=== PATIENT | male | born 1985 | race Caucasian/White ===

== ENCOUNTER 2017-02-20 20:26 | Emergency (ER) | payer OTHER ==
[2017-02-20] MEDS ORDERED: SODIUM CHLORIDE 0.9% 1,000 ML IV ONE (21:19)
[2017-02-20] MEDS ORDERED: ONDANSETRON 4 MG/2 ML VIAL IVP STA (21:46)
--- NOTE | 2017-02-20 21:49 | ED ---
General Adult HPI - General Chief complaint: Abdominal Pain Stated complaint: Abd Pain/Vomiting Time Seen by Provider: 02/20/17 21:15 Source: patient, RN notes reviewed Mode of arrival: ambulatory Limitations: no limitations - History of Present Illness Initial comments: Patient is a 31-year-old male presents to the emergency room for evaluation of nausea, vomiting and diarrhea. Patient states he can with diarrhea yesterday throughout the day. Patient states he woke up this morning with nausea, vomiting and diarrhea again. Patient states he vomited about 4-5 times and had 4 episodes of diarrhea today. Patient denies blood in stools. Patient denies trying new foods. Patient denies recent travel outside the country. Patient denies taking recent antibiotics. Patient states he is having diffuse left lower quadrant pain. Patient denies fevers or chills. Patient denies history of abdominal surgeries. Patient denies any pain or burning while urinating. Patient denies chest pain shortness of breath. Patient denies headache or dizziness. - Related Data Home Medications Medication Instructions Recorded Confirmed Citalopram Hydrobromide [CeleXA] 20 mg PO DAILY 02/20/17 02/20/17 Enalapril [Vasotec] 5 mg PO DAILY 02/20/17 02/20/17 Levothyroxine Sodium [Synthroid] 100 mcg PO DAILY 02/20/17 02/20/17 Omeprazole 20 mg PO BID 02/20/17 02/20/17 carBAMazepine [TEGretol] 200 mg PO Q12H 02/20/17 02/20/17 traZODone HCL 150 mg PO HS 02/20/17 02/20/17 Previous Rx's Medication Instructions Recorded Ondansetron Odt [Zofran Odt] 4 mg PO Q8HR PRN #12 tab 02/20/17 Allergies Allergy/AdvReac Type Severity Reaction Status Date / Time No Known Allergies Allergy Verified 02/20/17 21:33 Review of Systems ROS Statement: Those systems with pertinent positive or pertinent negative responses have been documented in the HPI. ROS Other: All systems not noted in ROS Statement are negative. Past Medical History Past Medical History: No Reported History History of Any Multi-Drug Resistant Organisms: None Reported Additional Past Surgical History / Comment(s): vasectomy Past Psychological History: No Psychological Hx Reported Smoking Status: Never smoker Past Alcohol Use History: None Reported Past Drug Use History: None Reported General Exam - General Exam Comments Initial Comments: Sitting in exam room, no acute distress. Limitations: no limitations General appearance: alert, in no apparent distress Head exam: Present: atraumatic, normocephalic, normal inspection Eye exam: Present: normal appearance ENT exam: Present: normal exam Neck exam: Present: normal inspection Respiratory exam: Present: normal lung sounds bilaterally. Absent: respiratory distress Cardiovascular Exam: Present: regular rate, normal rhythm, normal heart sounds GI/Abdominal exam: Present: soft, normal bowel sounds. Absent: distended, tenderness, guarding, rebound, rigid Extremities exam: Present: normal inspection Back exam: Present: normal inspection Neurological exam: Present: alert, oriented X3, CN II-XII intact, normal gait Psychiatric exam: Present: normal affect, normal mood Skin exam: Present: warm, dry, intact, normal color. Absent: rash Course Vital Signs 02/20/17 02/20/17 21:08 23:22 Temperature 97.6 F 98.4 F Pulse Rate 67 70 Respiratory 16 18 Rate Blood Pressure 133/96 140/89 O2 Sat by Pulse 98 96 Oximetry Medical Decision Making - Medical Decision Making Patient is a 30-year-old male presents to the emergency room for evaluation nausea, vomiting and diarrhea. Labs show no concerning findings. Patient states feeling better after fluids and Zofran. Will send patient home with Zofran and advised him to follow-up with his primary care provider if symptoms are not improving. Patient states he understands everything that was discussed with him. Return parameters discussed. Case discussed with Dr. Sparks. - Lab Data Result diagrams: 02/20/17 21:38 02/20/17 21:38 Lab Results 02/20/17 02/20/17 02/20/17 Range/Units 21:38 21:38 21:38 WBC 8.5 (3.8-10.6) k/uL RBC 5.92 H (4.30-5.90) m/uL Hgb 18.0 H (13.0-17.5) gm/dL Hct 51.1 (39.0-53.0) % MCV 86.4 (80.0-100.0) fL MCH 30.4 (25.0-35.0) pg MCHC 35.2 (31.0-37.0) g/dL RDW 12.7 (11.5-15.5) % Plt Count 321 (150-450) k/uL Neutrophils % 78 % Lymphocytes % 15 % Monocytes % 5 % Eosinophils % 1 % Basophils % 1 % Neutrophils # 6.6 (1.3-7.7) k/uL Lymphocytes # 1.3 (1.0-4.8) k/uL Monocytes # 0.4 (0-1.0) k/uL Eosinophils # 0.0 (0-0.7) k/uL Basophils # 0.1 (0-0.2) k/uL Sodium 141 (137-145) mmol/L Potassium 4.7 (3.5-5.1) mmol/L Chloride 106 (98-107) mmol/L Carbon Dioxide 23 (22-30) mmol/L Anion Gap 12 mmol/L BUN 15 (9-20) mg/dL Creatinine 0.98 (0.66-1.25) mg/dL Est GFR (MDRD) Af Amer >60 (>60 ml/min/1.73 sqM) Est GFR (MDRD) Non-Af >60 (>60 ml/min/1.73 sqM) Glucose 101 H (74-99) mg/dL Calcium 10.5 H (8.4-10.2) mg/dL Magnesium 1.7 (1.6-2.3) mg/dL Total Bilirubin 0.7 (0.2-1.3) mg/dL AST 33 (17-59) U/L ALT 57 (21-72) U/L Alkaline Phosphatase 100 (38-126) U/L Total Protein 8.5 H (6.3-8.2) g/dL Albumin 5.0 (3.5-5.0) g/dL Amylase 60 (30-110) U/L Lipase 114 (23-300) U/L - Radiology Data Radiology results: report reviewed, image reviewed Disposition Clinical Impression: Nausea vomiting and diarrhea Disposition: HOME SELF-CARE Condition: Good Instructions: Gastroenteritis (ED) Additional Instructions: Take Zofran as needed for nausea. Drink plenty of fluids. Please follow up with primary care provider in 1-2 days. If any new symptom arises or symptoms worsen, return to ER as soon as possible. Prescriptions: Ondansetron Odt [Zofran Odt] 4 mg PO Q8HR PRN #12 tab PRN Reason: Nausea Referrals: Thiago Goldberg MD [Primary Care Provider] - 1-2 days Time of Disposition: 23:06
[2017-02-20 21:53] LABS: Basophils # (A) 0.1 k/uL (0-0.2); Basophils % (A) 1 %; CH 31.1; CHCM 36.1; Eosinophils % (A) 1 %; HCT 51.1 % (39.0-53.0); HDW 2.88; Luc # (Auto) 0.11; Luc % (Auto) 1; Lymphocytes # (A) 1.3 k/uL (1.0-4.8); Lymphocytes % (A) 15 %; MCH 30.4 pg (25.0-35.0); MCHC 35.2 g/dL (31.0-37.0); MCV 86.4 fL (80.0-100.0); Mean Platelet Volume 6.5; Monocytes # (A) 0.4 k/uL (0-1.0); Monocytes % (A) 5 %; Neutrophils # (A) 6.6 k/uL (1.3-7.7); Neutrophils % (A) 78 %; RBC 5.92 m/uL (4.30-5.90); RDW 12.7 % (11.5-15.5); WBC 8.5 k/uL (3.8-10.6); WBC (Perox) 8.52
[2017-02-20 22:05] LABS: ALT 57 U/L (21-72); AST 33 U/L (17-59); Alkaline Phosphatase 100 U/L (38-126); Amylase 60 U/L (30-110); Anion Gap 12 mmol/L; Blood Urea Nitrogen 15 mg/dL (9-20); Calcium 10.5 mg/dL (8.4-10.2); Carbon Dioxide 23 mmol/L (22-30); Chloride 106 mmol/L (98-107); Glucose 101 mg/dL (74-99); Non-African American GFR(MDRD) >60 (>60 ml/min/1.73 sqM); Potassium 4.7 mmol/L (3.5-5.1); Sodium 141 mmol/L (137-145); Total Bilirubin 0.7 mg/dL (0.2-1.3); Total Protein 8.5 g/dL (6.3-8.2)
[2017-02-20 23:25] VITALS: BP 140/89; PULSE 70; RESP 18; TEMP 98.4
== END 2017-02-20 23:22 | disposition home or self-care (01) ==
LOC: EC 20:26
DX: R11.2 Nausea with vomiting, unspecified (principal); R19.7 Diarrhea, unspecified; R10.32 Left lower quadrant pain; Z79.899 Other long term (current) drug therapy
CPT/HCPCS: 99284; 96374; 96361 ×2; 36415; 80053; 82150; 83690; 83735; 85025; J2405

== ENCOUNTER 2017-02-22 17:14 | Emergency (ER) | payer OTHER ==
[2017-02-22 17:28] VITALS: RESP 18; TEMP 98
[2017-02-22] MEDS ORDERED: SODIUM CHLORIDE 0.9% 500 ML IV STA (18:16)
[2017-02-22 18:50] LABS: Basophils % (A) 1 %; CH 30.2; CHCM 34.5; Eosinophils # (A) 0.1 k/uL (0-0.7); Eosinophils % (A) 2 %; HCT 45.5 % (39.0-53.0); HDW 2.73; HGB 15.6 gm/dL (13.0-17.5); Luc % (Auto) 2; Lymphocytes # (A) 1.2 k/uL (1.0-4.8); Lymphocytes % (A) 20 %; MCHC 34.2 g/dL (31.0-37.0); MCV 87.9 fL (80.0-100.0); Mean Platelet Volume 6.3; Monocytes # (A) 0.3 k/uL (0-1.0); Monocytes % (A) 4 %; Neutrophils # (A) 4.5 k/uL (1.3-7.7); Neutrophils % (A) 72 %; RBC 5.18 m/uL (4.30-5.90); RDW 12.6 % (11.5-15.5); WBC 6.2 k/uL (3.8-10.6); WBC (Perox) 5.92
[2017-02-22 19:02] LABS: ALT 63 U/L (21-72); AST 39 U/L (17-59); Alkaline Phosphatase 88 U/L (38-126); Amylase 56 U/L (30-110); Anion Gap 13 mmol/L; Blood Urea Nitrogen 14 mg/dL (9-20); Calcium 9.8 mg/dL (8.4-10.2); Carbon Dioxide 21 mmol/L (22-30); Chloride 106 mmol/L (98-107); Glucose 102 mg/dL (74-99); Non-African American GFR(MDRD) >60 (>60 ml/min/1.73 sqM); Potassium 4.7 mmol/L (3.5-5.1); Sodium 140 mmol/L (137-145); Total Bilirubin 0.6 mg/dL (0.2-1.3); Total Protein 7.9 g/dL (6.3-8.2)
[2017-02-22 19:09] LABS: Appearance,Urine Clear (Clear); Bilirubin,Urine Negative (Negative); Glucose,Urine (UA) Negative (Negative); Ketones,Urine Negative (Negative); Leukocyte Esterase,Urine Negative (Negative); Nitrite,Urine Negative (Negative); PH, Urine 5.5 (5.0-8.0); Protein,Urine Negative (Negative); Specific Gravity,Urine 1.016 (1.001-1.035); UA Billing (MACRO vs. MICRO) CHEM; Urobilinogen,Urine <2.0 mg/dL (<2.0)
[2017-02-22 19:33] VITALS: BP 114/58; PULSE 75
--- NOTE | 2017-02-22 19:51 | ED ---
Nausea/Vomiting/Diarrhea HPI - General Chief complaint: Abdominal Pain Stated complaint: abd pain Time Seen by Provider: 02/22/17 18:10 Source: patient Mode of arrival: ambulatory Limitations: no limitations - Related Data Home Medications Medication Instructions Recorded Confirmed Citalopram Hydrobromide [CeleXA] 20 mg PO DAILY 02/20/17 02/22/17 Enalapril [Vasotec] 5 mg PO DAILY 02/20/17 02/22/17 Levothyroxine Sodium [Synthroid] 100 mcg PO DAILY 02/20/17 02/22/17 Omeprazole 20 mg PO BID 02/20/17 02/22/17 carBAMazepine [TEGretol] 200 mg PO Q12H 02/20/17 02/22/17 traZODone HCL 150 mg PO HS 02/20/17 02/22/17 Ibuprofen [Motrin] 400 mg PO Q6HR PRN 02/22/17 02/22/17 Previous Rx's Medication Instructions Recorded Ondansetron Odt [Zofran Odt] 4 mg PO Q8HR PRN #12 tab 02/20/17 Ondansetron Odt [Zofran ODT] 4 mg PO Q8HR PRN #10 tab 02/22/17 Allergies Allergy/AdvReac Type Severity Reaction Status Date / Time No Known Allergies Allergy Verified 02/22/17 19:07 Review of Systems ROS Statement: Those systems with pertinent positive or pertinent negative responses have been documented in the HPI. ROS Other: All systems not noted in ROS Statement are negative. Past Medical History Past Medical History: No Reported History History of Any Multi-Drug Resistant Organisms: None Reported Past Surgical History: Orthopedic Surgery Additional Past Surgical History / Comment(s): vasectomy knee Past Psychological History: Bipolar, Depression Smoking Status: Never smoker Past Alcohol Use History: None Reported Past Drug Use History: None Reported General Exam Limitations: no limitations Course Vital Signs 02/22/17 02/22/17 17:25 19:24 Temperature 98.0 F Pulse Rate 68 75 Respiratory 18 18 Rate Blood Pressure 132/81 114/58 O2 Sat by Pulse 97 98 Oximetry Medical Decision Making - Lab Data Result diagrams: 02/22/17 18:30 02/22/17 18:30 Lab Results 02/22/17 02/22/17 02/22/17 Range/Units 18:30 18:30 19:00 WBC 6.2 (3.8-10.6) k/uL RBC 5.18 (4.30-5.90) m/uL Hgb 15.6 (13.0-17.5) gm/dL Hct 45.5 (39.0-53.0) % MCV 87.9 (80.0-100.0) fL MCH 30.0 (25.0-35.0) pg MCHC 34.2 (31.0-37.0) g/dL RDW 12.6 (11.5-15.5) % Plt Count 244 (150-450) k/uL Neutrophils % 72 % Lymphocytes % 20 % Monocytes % 4 % Eosinophils % 2 % Basophils % 1 % Neutrophils # 4.5 (1.3-7.7) k/uL Lymphocytes # 1.2 (1.0-4.8) k/uL Monocytes # 0.3 (0-1.0) k/uL Eosinophils # 0.1 (0-0.7) k/uL Basophils # 0.0 (0-0.2) k/uL Sodium 140 (137-145) mmol/L Potassium 4.7 (3.5-5.1) mmol/L Chloride 106 (98-107) mmol/L Carbon Dioxide 21 L (22-30) mmol/L Anion Gap 13 mmol/L BUN 14 (9-20) mg/dL Creatinine 0.97 (0.66-1.25) mg/dL Est GFR (MDRD) Af Amer >60 (>60 ml/min/1.73 sqM) Est GFR (MDRD) Non-Af >60 (>60 ml/min/1.73 sqM) Glucose 102 H (74-99) mg/dL Calcium 9.8 (8.4-10.2) mg/dL Total Bilirubin 0.6 (0.2-1.3) mg/dL AST 39 (17-59) U/L ALT 63 (21-72) U/L Alkaline Phosphatase 88 (38-126) U/L Total Protein 7.9 (6.3-8.2) g/dL Albumin 4.7 (3.5-5.0) g/dL Amylase 56 (30-110) U/L Lipase 113 (23-300) U/L Urine Color Yellow Urine Appearance Clear (Clear) Urine pH 5.5 (5.0-8.0) Ur Specific [place] 1.016 (1.001-1.035) Urine Protein Negative (Negative) Urine Glucose (UA) Negative (Negative) Urine Ketones Negative (Negative) Urine Blood Negative (Negative) Urine Nitrite Negative (Negative) Urine Bilirubin Negative (Negative) Urine Urobilinogen <2.0 (<2.0) mg/dL Ur Leukocyte Esterase Negative (Negative) Disposition Clinical Impression: Gastroenteritis Disposition: HOME SELF-CARE Condition: Good Instructions: Gastroenteritis (ED) Prescriptions: Ondansetron Odt [Zofran ODT] 4 mg PO Q8HR PRN #10 tab PRN Reason: Nausea Referrals: Thiago Goldberg MD [Primary Care Provider] - 1-2 days
== END 2017-02-22 20:09 | disposition home or self-care (01) ==
LOC: EC 17:14
DX: K52.9 Noninfective gastroenteritis and colitis, unspecified (principal); F31.9 Bipolar disorder, unspecified; Z79.899 Other long term (current) drug therapy
CPT/HCPCS: 36415; 80053; 81003; 82150; 83690; 85025; 96360; 96361; 99284

== ENCOUNTER 2017-11-11 08:14 | Emergency (ER) | payer OTHER ==
[2017-11-11] MEDS ORDERED: DICYCLOMINE 10 MG/ML 2 ML AMP IM STA (08:24)
[2017-11-11] MEDS ORDERED: SODIUM CHLORIDE 0.9% 1,000 ML IV STA (08:24)
[2017-11-11] MEDS ORDERED: FAMOTIDINE 20 MG/2 ML VIAL IV STA (08:24)
[2017-11-11] MEDS ORDERED: ONDANSETRON 4 MG/2 ML VIAL IVP STA ×2 (08:24→09:29)
--- NOTE | 2017-11-11 08:27 | ED ---
General Adult HPI - General Chief complaint: Nausea/Vomiting/Diarrhea Stated complaint: SOB Time Seen by Provider: 11/11/17 08:21 Source: patient, RN notes reviewed Mode of arrival: wheelchair Limitations: no limitations - History of Present Illness Initial comments: Patient is a 31-year-old male who presents emergency room today with a chief complaint of symptoms of nausea vomiting diarrhea that started late last night approximately 10 PM. Patient does admit that he's had several bouts of diarrhea. States just a clear liquid at this time. Patient admits that he started having vomiting this morning. Several bouts no sign of any blood in the emesis. Patient does admit to abdominal cramping throughout the abdomen. Patient denies any other complaints or symptoms. Patient denies any recent fever , chills, shortness of breath, chest pain, back pain, numbness or tingling, dysuria or hematuria, constipation, headaches or visual changes, or any other complaints. - Related Data Home Medications Medication Instructions Recorded Confirmed Citalopram Hydrobromide [CeleXA] 20 mg PO DAILY 02/20/17 02/22/17 Enalapril [Vasotec] 5 mg PO DAILY 02/20/17 02/22/17 Levothyroxine Sodium [Synthroid] 100 mcg PO DAILY 02/20/17 02/22/17 Omeprazole 20 mg PO BID 02/20/17 02/22/17 carBAMazepine [TEGretol] 200 mg PO Q12H 02/20/17 02/22/17 traZODone HCL 150 mg PO HS 02/20/17 02/22/17 Ibuprofen [Motrin] 400 mg PO Q6HR PRN 02/22/17 02/22/17 Previous Rx's Medication Instructions Recorded Ondansetron Odt [Zofran Odt] 4 mg PO Q8HR PRN #12 tab 02/20/17 Ondansetron Odt [Zofran ODT] 4 mg PO Q8HR PRN #10 tab 02/22/17 Dicyclomine [Bentyl] 20 mg PO QID #20 tablet 11/11/17 Ondansetron Odt [Zofran ODT] 4 mg PO Q8HR PRN #20 tab 11/11/17 Allergies Allergy/AdvReac Type Severity Reaction Status Date / Time No Known Allergies Allergy Verified 11/11/17 08:19 Review of Systems ROS Statement: Those systems with pertinent positive or pertinent negative responses have been documented in the HPI. ROS Other: All systems not noted in ROS Statement are negative. Past Medical History Past Medical History: No Reported History History of Any Multi-Drug Resistant Organisms: None Reported Past Surgical History: Orthopedic Surgery Additional Past Surgical History / Comment(s): vasectomy knee Past Psychological History: Bipolar, Depression Smoking Status: Never smoker Past Alcohol Use History: None Reported Past Drug Use History: None Reported General Exam - General Exam Comments Initial Comments: General: The patient is awake and alert, moderate distress. Eye: Pupils are equal, round and reactive to light, extra-ocular movements are intact. No nystagmus. There is normal conjunctiva bilaterally. No signs of icterus. Ears, nose, mouth and throat: There are moist mucous membranes and no oral lesions. Neck: The neck is supple, there is no tenderness or JVD. Cardiovascular: There is a regular rate and rhythm. No murmur, rub or gallop is appreciated. Respiratory: Lungs are clear to auscultation, respirations are non-labored, breath sounds are equal. No wheezes, stridor, rales, or rhonchi. Gastrointestinal: Soft, non-distended, non-tender abdomen without masses or organomegaly noted. There is no rebound or guarding present. No CVA tenderness. Bowel sounds are unremarkable. Musculoskeletal: Normal ROM, no tenderness. Strength 5/5. Sensation intact. Pulses equal bilaterally 2+. Neurological: A&O x 3. CN II-XII intact, There are no obvious motor or sensory deficits. Coordination appears grossly intact. Speech is normal. Skin: Skin is warm and dry and no rashes or lesions are noted. Psychiatric: Cooperative, appropriate mood & affect, normal judgment. Limitations: no limitations Course Vital Signs 11/11/17 08:17 Temperature 98.9 F Pulse Rate 69 Respiratory 16 Rate Blood Pressure 144/95 O2 Sat by Pulse 99 Oximetry Medical Decision Making - Medical Decision Making Patient reexamined at this time shows no signs of distress. He does admits to feeling somewhat nauseated here in emergency room. Is tolerating by mouth liquids. Patient's labs been reviewed. Mildly elevated white count. Patient' s had multiple bouts of nausea vomiting diarrhea. Patient remaining labs are unremarkable. X-ray unremarkable. Patient will be discharged home with Lakisha Schwartz for his symptoms. Advised follow-up the family doctor returning if symptoms increase or worsen. Patient states understanding and is in agreement. - Lab Data Result diagrams: 11/11/17 08:40 11/11/17 08:40 Lab Results 11/11/17 11/11/17 Range/Units 08:40 08:40 WBC 11.4 H (3.8-10.6) k/uL RBC 5.87 (4.30-5.90) m/uL Hgb 17.4 (13.0-17.5) gm/dL Hct 49.9 (39.0-53.0) % MCV 85.1 (80.0-100.0) fL MCH 29.6 (25.0-35.0) pg MCHC 34.8 (31.0-37.0) g/dL RDW 12.4 (11.5-15.5) % Plt Count 337 (150-450) k/uL Neutrophils % 78 % Lymphocytes % 15 % Monocytes % 4 % Eosinophils % 3 % Basophils % 0 % Neutrophils # 8.8 H (1.3-7.7) k/uL Lymphocytes # 1.7 (1.0-4.8) k/uL Monocytes # 0.4 (0-1.0) k/uL Eosinophils # 0.3 (0-0.7) k/uL Basophils # 0.1 (0-0.2) k/uL Sodium 141 (137-145) mmol/L Potassium 4.3 (3.5-5.1) mmol/L Chloride 106 (98-107) mmol/L Carbon Dioxide 19 L (22-30) mmol/L Anion Gap 16 mmol/L BUN 16 (9-20) mg/dL Creatinine 1.09 (0.66-1.25) mg/dL Est GFR (MDRD) Af Amer >60 (>60 ml/min/1.73 sqM) Est GFR (MDRD) Non-Af >60 (>60 ml/min/1.73 sqM) Glucose 141 H (74-99) mg/dL Calcium 10.3 H (8.4-10.2) mg/dL Total Bilirubin 0.6 (0.2-1.3) mg/dL AST 33 (17-59) U/L ALT 48 (21-72) U/L Alkaline Phosphatase 101 (38-126) U/L Total Protein 8.0 (6.3-8.2) g/dL Albumin 5.0 (3.5-5.0) g/dL Amylase 70 (30-110) U/L Lipase 131 (23-300) U/L Disposition Clinical Impression: Nausea vomiting and diarrhea Disposition: HOME SELF-CARE Condition: Good Instructions: Gastroenteritis (ED) Additional Instructions: Please use medication as discussed. Please follow-up with family doctor in the next 2 days of symptoms have not improved. Please return to emergency room if the symptoms increase or worsen or for any other concerns. Prescriptions: Dicyclomine [Bentyl] 20 mg PO QID #20 tablet Ondansetron Odt [Zofran ODT] 4 mg PO Q8HR PRN #20 tab PRN Reason: Nausea Referrals: Thiago Goldberg MD [Primary Care Provider] - 1-2 days Time of Disposition: 10:18
[2017-11-11 08:49] LABS: Basophils # (A) 0.1 k/uL (0-0.2); Basophils % (A) 0 %; Eosinophils # (A) 0.3 k/uL (0-0.7); Eosinophils % (A) 3 %; HCT 49.9 % (39.0-53.0); HGB 17.4 gm/dL (13.0-17.5); Lymphocytes # (A) 1.7 k/uL (1.0-4.8); Lymphocytes % (A) 15 %; MCH 29.6 pg (25.0-35.0); MCHC 34.8 g/dL (31.0-37.0); MCV 85.1 fL (80.0-100.0); Mean Platelet Volume 6.8; Monocytes # (A) 0.4 k/uL (0-1.0); Monocytes % (A) 4 %; Neutrophils # (A) 8.8 k/uL (1.3-7.7); Neutrophils % (A) 78 %; Platelet Count 337 k/uL (150-450); RBC 5.87 m/uL (4.30-5.90); RDW 12.4 % (11.5-15.5); WBC 11.4 k/uL (3.8-10.6)
[2017-11-11 09:03] LABS: ALT 48 U/L (21-72); AST 33 U/L (17-59); Alkaline Phosphatase 101 U/L (38-126); Amylase 70 U/L (30-110); Anion Gap 16 mmol/L; Blood Urea Nitrogen 16 mg/dL (9-20); Calcium 10.3 mg/dL (8.4-10.2); Carbon Dioxide 19 mmol/L (22-30); Chloride 106 mmol/L (98-107); Glucose 141 mg/dL (74-99); Lipase 131 U/L (23-300); Potassium 4.3 mmol/L (3.5-5.1); Sodium 141 mmol/L (137-145); Total Bilirubin 0.6 mg/dL (0.2-1.3)
--- NOTE | 2017-11-11 09:05 | XR ---
EXAMINATION TYPE: XR KUB , 2 VIEWS DATE OF EXAM ORDERED: 11/11/2017 HISTORY: abdominal pain. COMPARISON: Previous study dated 06/27/2013. FINDINGS: The lung bases are clear. Within the abdomen, the abdominal gas pattern is within normal limits. There is no evidence of obstru ction or free air. No unusual calcifications are seen. IMPRESSION: NO ACUTE INTRA-ABDOMINAL ABNORMALITY.
[2017-11-11] MEDS ORDERED: diphenhydrAMINE 50 MG/ML 1 ML VIAL IVP STA (09:29)
[2017-11-11] MEDS ORDERED: KETOROLAC 30 MG/ML 1 ML VIAL IVP STA (10:16)
[2017-11-11] MEDS ORDERED: METOCLOPRAMIDE 5 MG/ML 2 ML VIAL IVP STA (10:19)
[2017-11-11 10:39] VITALS: BP 145/84; PULSE 66; RESP 18; TEMP 98.4
[2017-11-11 10:42] LABS: Appearance,Urine Clear (Clear); Bilirubin,Urine Negative (Negative); Blood,Urine Negative (Negative); Color,Urine Yellow; Glucose,Urine (UA) Negative (Negative); Ketones,Urine 1+ (Negative); Leukocyte Esterase,Urine Negative (Negative); Mucus,Urine Rare /hpf; Nitrite,Urine Negative (Negative); PH, Urine 8.5 (5.0-8.0); Protein,Urine 1+ (Negative); RBC,Urine 1 /hpf (0-5); Specific Gravity,Urine 1.022 (1.001-1.035); Urobilinogen,Urine <2.0 mg/dL (<2.0); WBC,Urine <1 /hpf (0-5)
== END 2017-11-11 10:37 | disposition home or self-care (01) ==
LOC: EC 08:14
DX: R11.2 Nausea with vomiting, unspecified (principal); R19.7 Diarrhea, unspecified; D72.829 Elevated white blood cell count, unspecified; F31.9 Bipolar disorder, unspecified; Z79.899 Other long term (current) drug therapy
CPT/HCPCS: 99284; 96372; 96374; 96375 ×4; 96376; 96361; 36415; 80053; 82150; 83690; 85025; 81001; 74018; J1200; J0500; J2765; J2405; J1885

== ENCOUNTER → 2018-03-02 | Outpatient (CLI) | payer OTHER ==
--- NOTE | 2018-03-02 09:10 | US ---
EXAMINATION TYPE: US abdomen complete DATE OF EXAM: 03/02/2018 COMPARISON: None CLINICAL HISTORY: Chest Pain R07.9 Abd Pain R10.9. Digestive issues. No pain. NPO. No previous holly geries. EXAM MEASUREMENTS: Liver Length: 17.5 cm Gallbladder Wall: 0.2 cm CHD: 0.4 cm Spleen: 13.4 cm Right Kidney: 11.7 x 4.9 x 5.1 cm Left Kidney: 12.0 x 6.0 x 5.7 cm limited visualization due to overlying bowel gas Pancreas: Tail obscured by overlying bowel gas. Appears echogenic. Liver: Posterior right echogenic nonvascular circular lesion = 2.1 x 2.3 x 2.1 cm Gallbladder: wnl Evidence for sonographic Tejada's sign: neg CBD: Obscured by overlying bowel gas CHD: wnl Spleen: Appears enlarged Right Kidney: wnl Left Kidney: wnl Upper IVC: wnl Abd Aorta: Portions obscured by overlying bowel gas. No AAA visualized. The intrahepatic portion of the IVC and proximal abdominal aorta are within normal limits. There is no evidence of cholelithiasis. Common bile duct is unremarkable. The visualized portions of the castillo creas are homogenous. The spleen is unremarkable. Kidneys are symmetric and free of hydronephrosis. No renal lesions are seen. IMPRESSION: 1. No sonographic evidence of cholelithiasis or acute cholecystitis. 2. Solitary hyperechoic hepatic lesion and a patient without a background of hepatocellular disease a nd within this age group most commonly represents a benign hemangioma. If further characterization is clinically warranted dynamic three-phase enhanced CT abdomen could be performed. 3. No sonographic evidence of cholelithiasis or acute cholecystitis.
--- NOTE | 2018-03-02 10:12 | P.STRESS ---
- Stress Test Note Stress Test Results/Findings: Exam Performed: stress echo exercise Exam Date: 03/02/18 Reason for Exam: CHEST PAIN Height: 6 ft 1 in Weight: 117.934 kg Protocol: ANDREY Stage: 4 Duration of Exercise: 10:45 Resting Heart Rate: 63 Resting Blood Pressure: 151/543 Maximum Achieved Heart Rate: 164 Maximum Achieved Blood Pressure: 219/113 85% PMHR: 158 100% PMHR: 186 METS: 12.1 Technologist Comment: Stress Test Results/Findings: Patient excised in a Andrey protocol for 10 minutes 45 seconds. Baseline heart rate 63 beats a minute, peak heart rate 164 beats a minute. Blood pressure 151/54 mmHg. The blood pressure 219/130 mmHg No ECG evidence for ischemia No arrhythmias Stress echo images show excellent augmentation of overall LV contractility, without development of any wall motion normalities At recovery regional global LV systolic function and a normal Impression No ECG or echocardiographic evidence for ischemia Good exercise capacity Elevated blood pressure readings
== END ==
LOC: RADUSMAIN 08:06
PROVIDERS: ATTEND Family Medicine
DX: K76.89 Other specified diseases of liver (principal); R07.9 Chest pain, unspecified
CPT/HCPCS: 76700; 93351

== ENCOUNTER → 2018-03-21 | Outpatient (CLI) | payer OTHER ==
--- NOTE | 2018-03-21 09:16 | CT ---
EXAMINATION TYPE: CT abdomen wo/w con DATE OF EXAM: 03/21/2018 COMPARISON: 03/02/2018 abdominal ultrasound HISTORY: Hemangioma CT DLP: 2247 mGycm Automated exposure control for dose reduction was used. TECHNIQUE: Helical acquisition of images was performed from the lung bases through the top of iliac crest to include entire abdomen. CONTRAST: Performed with Oral Contrast and without and with IV Contrast, patient injected with 100 mL of Isovue 300. FINDINGS: On the unenhanced images there is no evidence of nephrolithiasis or cholelithiasis. Additio joel there is no evidence of hepatic steatosis. LUNG BASES: No significant abnormality is appreciated. LIVER/GB: The previously identified posterior right hepatic lobe lesion within segment 7 measuring ap proximately 2.2 x 2.4 x 2.2 cm demonstrates mild enhancement on delayed imaging, however this does no t demonstrate the typical peripheral discontinuous centripetal nodular buckling as atypical hemangiom a would. Considerations are for focal fatty infiltration, adenoma, focal nodular hyperplasia, and les s likely neoplasm. The remainder of the hepatic parenchyma enhances homogeneously and is unremarkable . PANCREAS: No significant abnormality is seen. SPLEEN: There is redemonstration of splenomegaly as the spleen measures 15.9 cm in longitudinal dimen latoya. ADRENALS: No significant abnormality is seen. KIDNEYS: Kidneys enhance and excrete symmetrically. No hydronephrosis. BOWEL: Small duodenal diverticulum is incidentally noted. LYMPH NODES: No radio than 1 cm short axis lymph node is seen within the abdomen or pelvis. OSSEOUS STRUCTURES: Osseous structures appear intact. There is partial visualization of probable maris ateral pars interarticularis defects at L5. FREE AIR: No free air is visualized. OTHER: Abdominal aorta is of normal course and caliber. IMPRESSION: 1. RIGHT HEPATIC SOLITARY LESION DOES NOT FIT CRITERIA FOR A BENIGN HEMANGIOMA ON CT. CONSIDERATIONS ARE FOR FOCAL FATTY INFILTRATION, ADENOMA, FOCAL NODULAR HYPERPLASIA AND LESS LIKELY NEOPLASM. FURTHE R CHARACTERIZATION COULD BE PERFORMED WITH ENHANCED ABDOMINAL MR. 2. REDEMONSTRATION OF SPLENOMEGALY WITHOUT EVIDENCE OF PORTAL VENOUS HYPERTENSION OR HEPATOCELLULAR D ISEASE.
== END | disposition home or self-care (01) ==
LOC: RADCTMAIN 07:44
PROVIDERS: ATTEND Family Medicine
DX: K76.9 Liver disease, unspecified (principal); R16.1 Splenomegaly, not elsewhere classified; R07.9 Chest pain, unspecified
CPT/HCPCS: 74170; Q9967

== ENCOUNTER → 2018-04-20 | Outpatient (CLI) | payer OTHER ==
[2018-04-20 14:20] LABS: Blood Urea Nitrogen 19 mg/dL (9-20)
== END | disposition home or self-care (01) ==
LOC: RADMRIMAIN 13:50
PROVIDERS: ATTEND Internal Medicine Gastroenterology
DX: Z01.812 Encounter for preprocedural laboratory examination (principal)
CPT/HCPCS: 82565; 84520

== ENCOUNTER 2018-10-21 11:47 | Emergency (ER) | payer OTHER ==
[2018-10-21 12:02] VITALS: TEMP 97.9
[2018-10-21] MEDS ORDERED: HYDROmorphone 0.5 MG/0.5 ML SYRINGE IVP STA ×2 (12:43→13:56)
[2018-10-21] MEDS ORDERED: PANTOPRAZOLE 40 MG/10 ML VIAL IVP STA (12:43)
[2018-10-21] MEDS ORDERED: diphenhydrAMINE 50 MG/ML 1 ML VIAL IVP STA (12:43)
[2018-10-21] MEDS ORDERED: METOCLOPRAMIDE 5 MG/ML 2 ML VIAL IVP STA (12:43)
[2018-10-21] MEDS ORDERED: SODIUM CHLORIDE 0.9% 2,000 ML IV STA (12:43)
--- NOTE | 2018-10-21 13:04 | ED ---
Abdominal Pain HPI - General Chief Complaint: Abdominal Pain Stated Complaint: abd pain, vomiting Time Seen by Provider: 10/21/18 12:38 Source: patient, RN notes reviewed Mode of arrival: ambulatory Limitations: no limitations - History of Present Illness Initial Comments: 32-year-old male presents emergency Department with chief complaint of nausea vomiting abdominal pain. Patient states this is been an ongoing issue has been told that he has IBS. Patient has never had an EGD or colonoscopy. Patient states that he had this issues for such a long time that he started smoking medical marijuana. He states he wakes up with abdominal pain and nausea every day. Patient denies any localized abdominal pain. He states it's severe diffuse abdominal pains had 8 episodes of vomiting since arriving to the emergency department. Patient states that this is not out of the usual form. He denies any dysuria, hematuria, diarrhea constipation. No melena hematochezia. Denies any coffee-ground emesis or hematemesis - Related Data Home Medications Medication Instructions Recorded Confirmed Enalapril [Vasotec] 5 mg PO DAILY 02/20/17 10/21/18 Levothyroxine Sodium [Synthroid] 100 mcg PO DAILY 02/20/17 10/21/18 Omeprazole 20 mg PO BID 02/20/17 10/21/18 traZODone HCL 50 mg PO TID 10/21/18 10/21/18 Previous Rx's Medication Instructions Recorded Ondansetron Odt [Zofran Odt] 4 mg PO Q8HR PRN #14 tab 10/21/18 Promethazine Suppository 25 mg RECTAL QID PRN #12 supp 10/21/18 [Phenergan] Allergies Allergy/AdvReac Type Severity Reaction Status Date / Time No Known Allergies Allergy Verified 10/21/18 12:02 Review of Systems ROS Statement: Those systems with pertinent positive or pertinent negative responses have been documented in the HPI. ROS Other: All systems not noted in ROS Statement are negative. Past Medical History Past Medical History: No Reported History Additional Past Medical History / Comment(s): IBS History of Any Multi-Drug Resistant Organisms: None Reported Past Surgical History: Orthopedic Surgery Additional Past Surgical History / Comment(s): vasectomy knee Past Psychological History: Bipolar, Depression Smoking Status: Never smoker Past Alcohol Use History: None Reported Past Drug Use History: Marijuana General Exam Limitations: no limitations General appearance: alert, in no apparent distress ENT exam: Present: normal exam, normal oropharynx, mucous membranes moist Neck exam: Present: normal inspection. Absent: tenderness, meningismus, lymphadenopathy Respiratory exam: Present: normal lung sounds bilaterally. Absent: respiratory distress, wheezes, rales, rhonchi, stridor Cardiovascular Exam: Present: regular rate, normal rhythm, normal heart sounds. Absent: systolic murmur, diastolic murmur, rubs, gallop, clicks GI/Abdominal exam: Present: soft, tenderness (Mild diffuse), normal bowel sounds. Absent: distended, guarding, rebound, rigid Back exam: Absent: CVA tenderness (R), CVA tenderness (L) Skin exam: Present: warm, dry, intact, normal color. Absent: rash Course Vital Signs 10/21/18 10/21/18 12:00 14:59 Temperature 97.9 F Pulse Rate 94 49 L Respiratory 20 18 Rate Blood Pressure 150/83 166/98 O2 Sat by Pulse 100 98 Oximetry Medical Decision Making - Medical Decision Making 32-year-old male presented for nausea vomiting. This is been ongoing issue. CT was obtained secondary to continuation of symptoms in emergency department. CT is unremarkable. Patient has known liver lesion in which she is following up for. Patient is advised to follow-up with GI for EGD, colonoscopy and further evaluation. Patient may have some underlying cyclic vomiting syndrome. Patient will be discharged with Zofran, Phenergan suppositories. Patient improved after multi antiemetics, IV fluids. - Lab Data Result diagrams: 10/21/18 12:55 10/21/18 12:55 Lab Results 10/21/18 10/21/18 10/21/18 Range/Units 12:55 12:55 14:55 WBC 10.7 H (3.8-10.6) k/uL RBC 5.92 H (4.30-5.90) m/uL Hgb 18.1 H (13.0-17.5) gm/dL Hct 51.0 (39.0-53.0) % MCV 86.1 (80.0-100.0) fL MCH 30.5 (25.0-35.0) pg MCHC 35.4 (31.0-37.0) g/dL RDW 12.8 (11.5-15.5) % Plt Count 304 (150-450) k/uL Neutrophils % 73 % Lymphocytes % 18 % Monocytes % 5 % Eosinophils % 2 % Basophils % 1 % Neutrophils # 7.8 H (1.3-7.7) k/uL Lymphocytes # 1.9 (1.0-4.8) k/uL Monocytes # 0.5 (0-1.0) k/uL Eosinophils # 0.2 (0-0.7) k/uL Basophils # 0.1 (0-0.2) k/uL Sodium 141 (137-145) mmol/L Potassium 4.5 (3.5-5.1) mmol/L Chloride 106 (98-107) mmol/L Carbon Dioxide 23 (22-30) mmol/L Anion Gap 12 mmol/L BUN 17 (9-20) mg/dL Creatinine 1.24 (0.66-1.25) mg/dL Est GFR (CKD-EPI)AfAm 88 (>60 ml/min/1.73 sqM) Est GFR (CKD-EPI)NonAf 76 (>60 ml/min/1.73 sqM) Glucose 137 H (74-99) mg/dL Calcium 10.6 H (8.4-10.2) mg/dL Total Bilirubin 1.0 (0.2-1.3) mg/dL AST 41 (17-59) U/L ALT 68 (21-72) U/L Alkaline Phosphatase 93 (38-126) U/L Total Protein 8.3 H (6.3-8.2) g/dL Albumin 5.3 H (3.5-5.0) g/dL Amylase 67 (30-110) U/L Lipase 181 (23-300) U/L Urine Color Yellow Urine Appearance Clear (Clear) Urine pH 8.0 (5.0-8.0) Ur Specific [place] 1.021 (1.001-1.035) Urine Protein Trace H (Negative) Urine Glucose (UA) Negative (Negative) Urine Ketones 1+ H (Negative) Urine Blood Negative (Negative) Urine Nitrite Negative (Negative) Urine Bilirubin Negative (Negative) Urine Urobilinogen <2.0 (<2.0) mg/dL Ur Leukocyte Esterase Negative (Negative) Disposition Clinical Impression: Cyclic vomiting syndrome, Abdominal pain Disposition: HOME SELF-CARE Condition: Stable Instructions: Abdominal Pain (ED) Additional Instructions: Please return to the Emergency Department if symptoms worsen or any other concerns. Prescriptions: Ondansetron Odt [Zofran Odt] 4 mg PO Q8HR PRN #14 tab PRN Reason: Nausea Promethazine Suppository [Phenergan] 25 mg RECTAL QID PRN #12 supp PRN Reason: Nausea Is patient prescribed a controlled substance at d/c from ED?: No Referrals: Thiago Goldberg MD [Primary Care Provider] - 1-2 days Time of Disposition: 15:22
[2018-10-21] MEDS ORDERED: ONDANSETRON 4 MG/2 ML VIAL IVP STA (13:11)
[2018-10-21 13:26] LABS: Basophils # (A) 0.1 k/uL (0-0.2); Basophils % (A) 1 %; Eosinophils # (A) 0.2 k/uL (0-0.7); Eosinophils % (A) 2 %; HGB 18.1 gm/dL (13.0-17.5); Lymphocytes # (A) 1.9 k/uL (1.0-4.8); Lymphocytes % (A) 18 %; MCH 30.5 pg (25.0-35.0); MCHC 35.4 g/dL (31.0-37.0); MCV 86.1 fL (80.0-100.0); Mean Platelet Volume 6.8; Monocytes # (A) 0.5 k/uL (0-1.0); Monocytes % (A) 5 %; Neutrophils # (A) 7.8 k/uL (1.3-7.7); Neutrophils % (A) 73 %; Platelet Count 304 k/uL (150-450); RBC 5.92 m/uL (4.30-5.90); RDW 12.8 % (11.5-15.5); WBC 10.7 k/uL (3.8-10.6)
[2018-10-21 13:41] LABS: Albumin 5.3 g/dL (3.5-5.0); Calcium 10.6 mg/dL (8.4-10.2); Potassium 4.5 mmol/L (3.5-5.1); Total Protein 8.3 g/dL (6.3-8.2)
[2018-10-21] MEDS ORDERED: KETOROLAC 30 MG/ML 1 ML VIAL IVP STA (13:56)
[2018-10-21] MEDS ORDERED: LORazepam 2 MG/ML INJ IV STA (14:16)
--- NOTE | 2018-10-21 14:57 | CT ---
EXAMINATION TYPE: CT abdomen pelvis w con DATE OF EXAM: 10/21/2018 COMPARISON: 03/21/2018 HISTORY: Abdominal pain CT DLP: 1308.8 mGycm Automated exposure control for dose reduction was used. TECHNIQUE: Helical acquisition of images was performed from the lung bases through the pelvis. CONTRAST: Performed without Oral Contrast and with IV Contrast, patient injected with 100 mL of Isovue 300. FINDINGS: Lung bases are clear. There is no pleural effusion. There is small hiatal hernia. Heart size is aaliyah l. There is no pericardial effusion. spleen pancreas gallbladder appear normal. Bile ducts are not d ilated. There is a 2 cm hypodense focus in the posterior right lobe of the liver. This could be heman gioma. There is no adrenal mass. Kidneys show satisfactory contrast opacification. There is no hydronephrosi s. There is no retroperitoneal adenopathy. Ureters are not dilated. Bladder distends smoothly. There is no inguinal hernia. There is no free fluid in the pelvis. I see n o intestinal wall thickening. There is no mesenteric edema. There is no sign of a bowel obstruction. Appendix is very thin and appears normal. There is L5 spondylolysis with a 5 mm spondylolisthesis. I see no pelvic fracture. IMPRESSION: L5 SPONDYLOLYSIS WITH MINIMAL SPONDYLOLISTHESIS. HYPODENSE LIVER LESION UNCHANGED COMPARED TO LAST EX AM AND PROBABLY NOT CHANGED ALSO COMPARED TO 06/27/2013. I DO NOT SEE A CAUSE FOR ABDOMINAL PAIN.
[2018-10-21 15:01] VITALS: BP 166/98; PULSE 49; RESP 18
[2018-10-21 15:10] LABS: Appearance,Urine Clear (Clear); Bilirubin,Urine Negative (Negative); Blood,Urine Negative (Negative); Color,Urine Yellow; Glucose,Urine (UA) Negative (Negative); Ketones,Urine 1+ (Negative); Leukocyte Esterase,Urine Negative (Negative); Nitrite,Urine Negative (Negative); Protein,Urine Trace (Negative); Specific Gravity,Urine 1.021 (1.001-1.035); Urobilinogen,Urine <2.0 mg/dL (<2.0)
== END 2018-10-21 15:33 | disposition home or self-care (01) ==
LOC: EC 11:47
DX: G43.A0 Cyclical vomiting, in migraine, not intractable (principal); K76.89 Other specified diseases of liver; F31.9 Bipolar disorder, unspecified; Z79.899 Other long term (current) drug therapy
CPT/HCPCS: 36415; 80053; 82150; 83690; 85025; 81003; 74177; 99284; 96374; 96375 ×6; 96376; 96361 ×3; J2060; J1200; J2765; J2405; J1885; C9113; J1170; Q9967

== ENCOUNTER → 2019-01-28 | Outpatient (CLI) | payer OTHER ==
--- NOTE | 2019-01-29 08:20 | XR ---
EXAMINATION TYPE: XR ankle complete RT DATE OF EXAM: 01/28/2019 COMPARISON: NONE HISTORY: Pain FINDINGS: Three views of the ankle demonstrate the ankle mortise to be intact and symmetric. The joint spaces are preserved. The osseous structures are intact. IMPRESSION: 1. No definite acute fracture or dislocation, if symptoms persist follow-up study in 7 to 10 days wou ld be suggested.
== END | disposition home or self-care (01) ==
LOC: RADXRMAIN 15:28
PROVIDERS: ATTEND Physician Assistant
DX: S93.401A Sprain of unspecified ligament of right ankle, initial encounter (principal)

== ENCOUNTER → 2019-12-04 | Outpatient (CLI) | payer OTHER ==
--- NOTE | 2019-12-05 11:40 | XR ---
Left leg HISTORY: Pain Frontal and lateral views of the left leg submitted Bone mineralization, joint spaces and alignment are maintained. IMPRESSION: No fracture or dislocation.
== END | disposition home or self-care (01) ==
LOC: RADUSWWP 17:05
PROVIDERS: ATTEND Family Medicine
DX: M79.605 Pain in left leg (principal)

== ENCOUNTER 2020-03-26 18:41 | Emergency (ER) | payer OTHER ==
--- NOTE | 2020-03-26 19:20 | ED ---
Skin/Abscess/FB HPI - General Chief complaint: Skin/Abscess/Foreign Body Stated complaint: Hives/swollen toes Time Seen by Provider: 03/26/20 18:48 Source: patient Mode of arrival: ambulatory Limitations: no limitations - History of Present Illness Initial comments: Patient is a 34-year-old male presenting to the emergency Department with complaints of a rash on his feet. Patient states he noticed it first 2 days ago and he was having some itching to the area as well. He described the rash as slightly red, around on the arches of his feet and extending into his toes. He states he does walks barefooted a lot in his yard, he has not changed anything else. He denies any fever, chills, recent illness. He states he went to his PCP today who was not sure what the rash is caused from but did give him a steroid injection and told him to take Claritin. Patient came into the ER for second opinion. Patient states he does feel like a steroid shot did help with the itching. He states he is having some pain in his feet when he is walking. He denies any swelling or any other injuries. He does not have the rash anywhere else. He has no further complaints at this time. - Related Data Home Medications Medication Instructions Recorded Confirmed Enalapril [Vasotec] 5 mg PO DAILY 02/20/17 10/21/18 Levothyroxine Sodium [Synthroid] 100 mcg PO DAILY 02/20/17 10/21/18 Omeprazole 20 mg PO BID 02/20/17 10/21/18 traZODone HCL 50 mg PO TID 10/21/18 10/21/18 Previous Rx's Medication Instructions Recorded Ondansetron Odt [Zofran Odt] 4 mg PO Q8HR PRN #14 tab 10/21/18 Promethazine Suppository 25 mg RECTAL QID PRN #12 supp 10/21/18 [Phenergan] Triamcinolone 0.1% Ointment 1 applic TOPICAL BID 5 Days #1 tube 03/26/20 [Kenalog 0.1% Ointment] predniSONE 10 mg PO BID 5 Days #10 tab 03/26/20 Allergies Allergy/AdvReac Type Severity Reaction Status Date / Time No Known Allergies Allergy Verified 03/26/20 18:47 Review of Systems ROS Statement: Those systems with pertinent positive or pertinent negative responses have been documented in the HPI. ROS Other: All systems not noted in ROS Statement are negative. Past Medical History Past Medical History: No Reported History Additional Past Medical History / Comment(s): IBS History of Any Multi-Drug Resistant Organisms: None Reported Past Surgical History: Orthopedic Surgery Additional Past Surgical History / Comment(s): vasectomy knee Past Psychological History: Bipolar, Depression Smoking Status: Never smoker Past Alcohol Use History: None Reported Past Drug Use History: Marijuana General Exam - General Exam Comments Initial Comments: GENERAL: Well-appearing, well-nourished and in no acute distress. HEAD: Atraumatic, normocephalic. EYES: Pupils equal round and reactive to light, extraocular movements intact, sclera anicteric, conjunctiva are normal. ENT: TMs normal, nares patent, oropharynx clear without exudates. Moist mucous membranes. NECK: Normal range of motion, supple without lymphadenopathy or JVD. LUNGS: Breath sounds clear to auscultation bilaterally and equal. No wheezes rales or rhonchi. HEART: Regular rate and rhythm without murmurs, rubs or gallops. ABDOMEN: Soft, nontender, normoactive bowel sounds. No guarding, no rebound. No masses appreciated. : Deferred EXTREMITIES: Normal range of motion, no pitting or edema. No clubbing or cyanosis. NEUROLOGICAL: Cranial nerves II through XII grossly intact. Normal speech, normal gait. PSYCH: Normal mood, normal affect. SKIN: Warm, Dry, normal turgor. Patient has a macular, dark purplish colored rash/circular lesions to his bilateral feet, in the medial aspect near the arches as well as into his toes. This is not raised, does not appear to be infectious or viral. Appears to be some sort of contact dermatitis. He also has a very mild spot to his right wrist. Limitations: no limitations Course Vital Signs 03/26/20 03/26/20 18:45 19:46 Temperature 98.4 F 98.5 F Pulse Rate 109 H 100 Respiratory 18 16 Rate Blood Pressure 157/99 150/90 O2 Sat by Pulse 98 98 Oximetry Medical Decision Making - Medical Decision Making Patient is a 34-year-old male presenting with a rash on both of his feet extending into his toes as well as a mild spot on his right wrist. This does not appear to be infectious or viral in nature. It appears to be some sort of contact dermatitis. Patient did go to his PCP today and received a steroid injection and was told to take Claritin. I recommended continuing with oral steroids for the next 3-5 days, as well as a topical steroid cream. If symptoms do not improve, patient will follow up with gas appliance mechanic. He is in agreement with this plan of care. He is stable for discharge. Return parameters were discussed with the patient he verbalizes understanding. Case discussed with Dr. Andrews. Disposition Clinical Impression: Contact dermatitis Disposition: HOME SELF-CARE Condition: Stable Instructions (If sedation given, give patient instructions): Contact Dermatitis (ED) Additional Instructions: Please return to the Emergency Department if symptoms worsen or any other concerns. Start oral steroids tomorrow. May apply topical steroid cream twice a day. If symptoms do not improve within 3-5 days, follow up with gas appliance mechanic. Prescriptions: Triamcinolone 0.1% Ointment [Kenalog 0.1% Ointment] 1 applic TOPICAL BID 5 Days #1 tube predniSONE 10 mg PO BID 5 Days #10 tab Is patient prescribed a controlled substance at d/c from ED?: No Referrals: Thiago Goldberg MD [Primary Care Provider] - 1-2 days
[2020-03-26 19:47] VITALS: BP 150/90; PULSE 100; RESP 16; TEMP 98.5
== END 2020-03-26 19:40 | disposition home or self-care (01) ==
LOC: EC 18:41
DX: L25.9 Unspecified contact dermatitis, unspecified cause (principal); K58.9 Irritable bowel syndrome, unspecified; F31.9 Bipolar disorder, unspecified; Z79.899 Other long term (current) drug therapy
CPT/HCPCS: 99282

== ENCOUNTER 2020-11-25 07:29 | Emergency (ER) | payer OTHER ==
[2020-11-25 07:35] VITALS: BP 144/90; PULSE 82; RESP 16; TEMP 97.9
[2020-11-25 07:51] LABS: Glucose,Whole Blood 107 mg/dL (75-99)
[2020-11-25] MEDS ORDERED: ACET/COD 300 MG/30 MG STARTER PACK 6 TAB BTL PO STA (07:53)
--- NOTE | 2020-11-25 07:54 | ED ---
Extremity Problem HPI - General Chief complaint: Extremity Problem,Nontraumatic Stated complaint: Knee pain Time Seen by Provider: 11/25/20 07:35 Source: patient, RN notes reviewed Mode of arrival: ambulatory Limitations: no limitations - History of Present Illness Initial comments: This is a 34-year-old male presents emergency Department chief complaint of abscess. Patient states he has a small bump on his right knee, on his left thigh. Patient states started a few days ago. No drainage at this time. Patient denies any history of MRSA but states he's had multiple skin infections like symptoms past. Patient denies fevers chills no other complaints. - Related Data Home Medications Medication Instructions Recorded Confirmed Enalapril [Vasotec] 5 mg PO DAILY 02/20/17 10/21/18 Levothyroxine Sodium [Synthroid] 100 mcg PO DAILY 02/20/17 10/21/18 Omeprazole 20 mg PO BID 02/20/17 10/21/18 traZODone HCL 50 mg PO TID 10/21/18 10/21/18 Previous Rx's Medication Instructions Recorded Ondansetron Odt [Zofran Odt] 4 mg PO Q8HR PRN #14 tab 10/21/18 Promethazine Suppository 25 mg RECTAL QID PRN #12 supp 10/21/18 [Phenergan] Triamcinolone 0.1% Ointment 1 applic TOPICAL BID 5 Days #1 tube 03/26/20 [Kenalog 0.1% Ointment] predniSONE 10 mg PO BID 5 Days #10 tab 03/26/20 Cephalexin [Keflex] 500 mg PO Q6HR #40 cap 11/25/20 Ibuprofen [Motrin] 600 mg PO Q8HR PRN #30 tab 11/25/20 Sulfamethox-Tmp 800-160Mg [Bactrim 1 each PO Q12HR #20 tab 11/25/20 Ds] Allergies Allergy/AdvReac Type Severity Reaction Status Date / Time No Known Allergies Allergy Verified 03/26/20 18:47 Review of Systems ROS Statement: Those systems with pertinent positive or pertinent negative responses have been documented in the HPI. ROS Other: All systems not noted in ROS Statement are negative. Past Medical History Past Medical History: No Reported History Additional Past Medical History / Comment(s): IBS History of Any Multi-Drug Resistant Organisms: None Reported Past Surgical History: Orthopedic Surgery Additional Past Surgical History / Comment(s): vasectomy knee Past Psychological History: Bipolar, Depression Smoking Status: Never smoker Past Alcohol Use History: None Reported Past Drug Use History: Marijuana General Exam Limitations: no limitations General appearance: alert, in no apparent distress Head exam: Present: atraumatic, normocephalic, normal inspection Respiratory exam: Present: normal lung sounds bilaterally. Absent: respiratory distress, wheezes, rales, rhonchi, stridor Cardiovascular Exam: Present: regular rate, normal rhythm, normal heart sounds. Absent: systolic murmur, diastolic murmur, rubs, gallop, clicks Extremities exam: Present: other (Right knee there is a small pustule noted, mild surrounding erythema patient has full range of motion no pain with range of motion of his right knee neurovascular intact) Skin exam: Present: warm, dry, intact, normal color, other (Left inner thigh there is approximately 1 cm area of induration and mild erythema there is some tenderness and no fluctuations). Absent: rash Course Vital Signs 11/25/20 07:32 Temperature 97.9 F Pulse Rate 82 Respiratory 16 Rate Blood Pressure 144/90 O2 Sat by Pulse 97 Oximetry Medical Decision Making - Medical Decision Making Patient has 2 small abscesses with no fluctuation we discussed IV versus no edema. Patient will try antibiotics at this time with warm compresses and return parameters were discussed. - Lab Data Lab Results 11/25/20 Range/Units 07:50 POC Glucose (mg/dL) 107 H (75-99) mg/dL POC Glu [employer] Technician ID Alonso Santiago Disposition Clinical Impression: Leg abscess Disposition: HOME SELF-CARE Condition: Stable Instructions (If sedation given, give patient instructions): Abscess (ED) Additional Instructions: Please return to the Emergency Department if symptoms worsen or any other concerns. Prescriptions: Sulfamethox-Tmp 800-160Mg [Bactrim Ds] 1 each PO Q12HR #20 tab Cephalexin [Keflex] 500 mg PO Q6HR #40 cap Ibuprofen [Motrin] 600 mg PO Q8HR PRN #30 tab PRN Reason: Pain Is patient prescribed a controlled substance at d/c from ED?: No Referrals: Thiago Goldberg MD [Primary Care Provider] - 1-2 days Time of Disposition: 07:54
== END 2020-11-25 08:09 | disposition home or self-care (01) ==
LOC: EC 07:29
DX: L02.419 Cutaneous abscess of limb, unspecified (principal); R23.4 Changes in skin texture; F32.9 Major depressive disorder, single episode, unspecified; Z79.890 Hormone replacement therapy; Z79.899 Other long term (current) drug therapy
CPT/HCPCS: 36415; 99283

== ENCOUNTER 2020-11-28 17:20 | Emergency (ER) | payer OTHER ==
[2020-11-28 17:26] VITALS: BP 159/89; PULSE 79; RESP 20; TEMP 98.6
[2020-11-28] MEDS ORDERED: ACET/COD 300 MG/30 MG STARTER PACK 6 TAB BTL PO STA (17:49)
--- NOTE | 2020-11-28 17:52 | ED ---
Skin/Abscess/FB HPI - General Chief complaint: Skin/Abscess/Foreign Body Stated complaint: R knee injury Time Seen by Provider: 11/28/20 17:32 Source: patient, RN notes reviewed Mode of arrival: ambulatory Limitations: no limitations - History of Present Illness Initial comments: 34-year-old male presents to emergency department complaining of an abscess to the right knee. He was here on 11/26/2020. The same issue and was prescribed antibiotics to go home with as incision and drainage was not needed at bedtime. Patient noted that patient had not gone down an abscess has not undergone a couple days. He was informed that antibiotics take several days to kick in before he no small affect. He denied any increased swelling or erythema localized to the abscess. He did not that he was using a warm washcloth or heating pad over the abscess to try to get it to open up and drain. In that he was to follow up with his primary care Monday but wanted to come in to get his mind today that it was not getting worse. He denied any chest pain first breath headache nausea vomiting diarrhea constipation loss of strength weakness numbness tingling. - Related Data Home Medications Medication Instructions Recorded Confirmed Enalapril [Vasotec] 5 mg PO DAILY 02/20/17 10/21/18 Levothyroxine Sodium [Synthroid] 100 mcg PO DAILY 02/20/17 10/21/18 Omeprazole 20 mg PO BID 02/20/17 10/21/18 traZODone HCL 50 mg PO TID 10/21/18 10/21/18 Previous Rx's Medication Instructions Recorded Ondansetron Odt [Zofran Odt] 4 mg PO Q8HR PRN #14 tab 10/21/18 Promethazine Suppository 25 mg RECTAL QID PRN #12 supp 10/21/18 [Phenergan] Triamcinolone 0.1% Ointment 1 applic TOPICAL BID 5 Days #1 tube 03/26/20 [Kenalog 0.1% Ointment] predniSONE 10 mg PO BID 5 Days #10 tab 03/26/20 Cephalexin [Keflex] 500 mg PO Q6HR #40 cap 11/25/20 Ibuprofen [Motrin] 600 mg PO Q8HR PRN #30 tab 11/25/20 Sulfamethox-Tmp 800-160Mg [Bactrim 1 each PO Q12HR #20 tab 11/25/20 Ds] Allergies Allergy/AdvReac Type Severity Reaction Status Date / Time No Known Allergies Allergy Verified 11/28/20 17:26 Review of Systems ROS Statement: Those systems with pertinent positive or pertinent negative responses have been documented in the HPI. ROS Other: All systems not noted in ROS Statement are negative. Past Medical History Past Medical History: No Reported History Additional Past Medical History / Comment(s): IBS History of Any Multi-Drug Resistant Organisms: None Reported Past Surgical History: Orthopedic Surgery Additional Past Surgical History / Comment(s): vasectomy knee Past Psychological History: Bipolar, Depression Smoking Status: Never smoker Past Alcohol Use History: None Reported Past Drug Use History: Marijuana General Exam Limitations: no limitations General appearance: alert, in no apparent distress Head exam: Present: atraumatic, normocephalic, normal inspection Eye exam: Present: normal appearance, PERRL, EOMI. Absent: scleral icterus, conjunctival injection, periorbital swelling ENT exam: Present: normal exam, mucous membranes moist Neck exam: Present: normal inspection. Absent: tenderness, meningismus, lymphadenopathy Respiratory exam: Present: normal lung sounds bilaterally. Absent: respiratory distress, wheezes, rales, rhonchi, stridor Cardiovascular Exam: Present: regular rate, normal rhythm, normal heart sounds. Absent: systolic murmur, diastolic murmur, rubs, gallop, clicks GI/Abdominal exam: Present: soft, normal bowel sounds. Absent: distended, tenderness, guarding, rebound, rigid Extremities exam: Present: normal inspection, full ROM, normal capillary refill. Absent: tenderness, pedal edema, joint swelling, calf tenderness Neurological exam: Present: alert, oriented X3, CN II-XII intact Psychiatric exam: Present: normal affect, normal mood Skin exam: Present: warm, dry, intact, normal color, other (Small 1 cm x 1 cm abscess to patient's right knee. Minimal erythema minimal swelling moderate tenderness to palpation. No pus could be expressed.). Absent: rash Course Vital Signs 11/28/20 17:24 Temperature 98.6 F Pulse Rate 79 Respiratory 20 Rate Blood Pressure 159/89 O2 Sat by Pulse 99 Oximetry Medical Decision Making - Medical Decision Making 34 she'll male complaining of abscess to right knee. Patient states that he will continue take antibiotics at home and follow-up with primary care 1 day as needed. Case discussed with todd Garcia decided the patient could discharge home. Disposition Clinical Impression: Abscess of right knee Disposition: HOME SELF-CARE Condition: Stable Instructions (If sedation given, give patient instructions): Abscess (ED) Additional Instructions: Please return to the Emergency Department if symptoms worsen or any other concerns. Follow-up with primary care in 1-2 days. Continue take antibiotics until complete. Do not squeezer or pick at abscess. Take pain medication as prescribed Is patient prescribed a controlled substance at d/c from ED?: Yes When asked, does pt state using other controlled substances?: No If prescribed controlled substance>3 days was MAPS reviewed?: Prescribed <3 Days If opioid is for acute pain is fill amount 7 days or less?: Yes Referrals: None,Stated [Primary Care Provider] - 1-2 days Time of Disposition: 17:49
== END 2020-11-28 18:13 | disposition home or self-care (01) ==
LOC: EC 17:20
DX: L02.415 Cutaneous abscess of right lower limb (principal); F32.9 Major depressive disorder, single episode, unspecified; Z79.899 Other long term (current) drug therapy; Z79.890 Hormone replacement therapy
CPT/HCPCS: 99282

== ENCOUNTER 2021-01-25 12:47 | Emergency (ER) | payer OTHER ==
[2021-01-25 12:53] VITALS: BP 172/96; PULSE 52; RESP 18; TEMP 97.5
[2021-01-25] MEDS ORDERED: LORazepam 2 MG/ML INJ IV STA (14:00)
[2021-01-25] MEDS ORDERED: FAMOTIDINE 20 MG/2 ML VIAL IV STA (14:00)
[2021-01-25] MEDS ORDERED: METOCLOPRAMIDE 5 MG/ML 2 ML VIAL IVP STA (14:00)
[2021-01-25] MEDS ORDERED: SODIUM CHLORIDE 0.9% 2,000 ML IV STA (14:00)
--- NOTE | 2021-01-25 14:02 | ED ---
General Adult HPI - General Chief complaint: Nausea/Vomiting/Diarrhea Stated complaint: Vomitting Time Seen by Provider: 01/25/21 13:25 Source: patient, RN notes reviewed Mode of arrival: ambulatory Limitations: no limitations - History of Present Illness Initial comments: Patient is a pleasant 35-year-old male presenting to emergency Department with complaints of nausea and vomiting. Patient states he'll follow-up with this morning followed by multiple episodes of nausea vomiting. Patient states he has had similar symptoms multiple times associated with his usual bowel syndrome. Patient states he has had this well over a dozen times previously with exactly the same symptoms. No fever. Patient states his bowel movement was fairly normal this morning and typically his symptoms occur just like that. Patient is having some mild abdominal discomfort however states that is from the persistent vomiting. - Related Data Home Medications Medication Instructions Recorded Confirmed Enalapril [Vasotec] 5 mg PO DAILY 02/20/17 10/21/18 Levothyroxine Sodium [Synthroid] 100 mcg PO DAILY 02/20/17 10/21/18 Omeprazole 20 mg PO BID 02/20/17 10/21/18 traZODone HCL 50 mg PO TID 10/21/18 10/21/18 Previous Rx's Medication Instructions Recorded Ondansetron Odt [Zofran Odt] 4 mg PO Q8HR PRN #14 tab 10/21/18 Promethazine Suppository 25 mg RECTAL QID PRN #12 supp 10/21/18 [Phenergan] Triamcinolone 0.1% Ointment 1 applic TOPICAL BID 5 Days #1 tube 03/26/20 [Kenalog 0.1% Ointment] predniSONE 10 mg PO BID 5 Days #10 tab 03/26/20 Cephalexin [Keflex] 500 mg PO Q6HR #40 cap 11/25/20 Ibuprofen [Motrin] 600 mg PO Q8HR PRN #30 tab 11/25/20 Sulfamethox-Tmp 800-160Mg [Bactrim 1 each PO Q12HR #20 tab 11/25/20 Ds] Allergies Allergy/AdvReac Type Severity Reaction Status Date / Time No Known Allergies Allergy Verified 01/25/21 12:53 Review of Systems ROS Statement: Those systems with pertinent positive or pertinent negative responses have been documented in the HPI. ROS Other: All systems not noted in ROS Statement are negative. Constitutional: Denies: fever Eyes: Denies: eye pain ENT: Denies: ear pain Respiratory: Denies: cough Cardiovascular: Denies: chest pain Endocrine: Denies: fatigue Gastrointestinal: Reports: as per HPI, nausea, vomiting Genitourinary: Denies: dysuria Musculoskeletal: Denies: back pain Skin: Denies: rash Neurological: Denies: weakness Past Medical History Past Medical History: No Reported History Additional Past Medical History / Comment(s): IBS History of Any Multi-Drug Resistant Organisms: None Reported Past Surgical History: Orthopedic Surgery Additional Past Surgical History / Comment(s): vasectomy knee Past Psychological History: Bipolar, Depression Smoking Status: Never smoker Past Alcohol Use History: None Reported Past Drug Use History: Marijuana General Exam Limitations: no limitations General appearance: alert, in no apparent distress Head exam: Present: normocephalic Eye exam: Present: normal appearance Neck exam: Present: normal inspection Respiratory exam: Present: normal lung sounds bilaterally Cardiovascular Exam: Present: regular rate, normal rhythm Expanded Peripheral pulses: 2+: Posterior Tibialis (R), Posterior Tibialis (L) GI/Abdominal exam: Present: soft. Absent: distended, tenderness, pulsatile mass Extremities exam: Present: normal inspection Neurological exam: Present: alert Psychiatric exam: Present: normal affect, normal mood Skin exam: Present: normal color Course Vital Signs 01/25/21 12:49 Temperature 97.5 F L Pulse Rate 52 L Respiratory 18 Rate Blood Pressure 172/96 O2 Sat by Pulse 97 Oximetry Medical Decision Making - Medical Decision Making Patient has eloped - Lab Data Result diagrams: 01/25/21 14:15 01/25/21 14:15 Lab Results 01/25/21 01/25/21 Range/Units 14:15 14:15 WBC 9.0 (3.8-10.6) k/uL RBC 5.59 (4.30-5.90) m/uL Hgb 16.4 (13.0-17.5) gm/dL Hct 49.1 (39.0-53.0) % MCV 87.9 (80.0-100.0) fL MCH 29.4 (25.0-35.0) pg MCHC 33.5 (31.0-37.0) g/dL RDW 13.0 (11.5-15.5) % Plt Count 299 (150-450) k/uL MPV 6.5 Neutrophils % 71 % Lymphocytes % 19 % Monocytes % 6 % Eosinophils % 2 % Basophils % 1 % Neutrophils # 6.3 (1.3-7.7) k/uL Lymphocytes # 1.7 (1.0-4.8) k/uL Monocytes # 0.5 (0-1.0) k/uL Eosinophils # 0.2 (0-0.7) k/uL Basophils # 0.1 (0-0.2) k/uL Sodium 141 (137-145) mmol/L Potassium 3.9 (3.5-5.1) mmol/L Chloride 104 (98-107) mmol/L Carbon Dioxide 24 (22-30) mmol/L Anion Gap 13 mmol/L BUN 13 (9-20) mg/dL Creatinine 1.08 (0.66-1.25) mg/dL Est GFR (CKD-EPI)AfAm >90 (>60 ml/min/1.73 sqM) Est GFR (CKD-EPI)NonAf 87 (>60 ml/min/1.73 sqM) Glucose 138 H (74-99) mg/dL Calcium 10.2 (8.4-10.2) mg/dL Total Bilirubin 0.5 (0.2-1.3) mg/dL AST 33 (17-59) U/L ALT 45 (4-49) U/L Alkaline Phosphatase 93 (38-126) U/L Total Protein 7.7 (6.3-8.2) g/dL Albumin 4.8 (3.5-5.0) g/dL Amylase 73 (30-110) U/L Lipase 189 (23-300) U/L Disposition Clinical Impression: Vomiting Disposition: Left Against Medical Advice Is patient prescribed a controlled substance at d/c from ED?: No Referrals: Thiago Goldberg MD [Primary Care Provider] - 1-2 days
[2021-01-25 14:37] LABS: Basophils # (A) 0.1 k/uL (0-0.2); Basophils % (A) 1 %; Eosinophils # (A) 0.2 k/uL (0-0.7); Eosinophils % (A) 2 %; HCT 49.1 % (39.0-53.0); HGB 16.4 gm/dL (13.0-17.5); Lymphocytes # (A) 1.7 k/uL (1.0-4.8); Lymphocytes % (A) 19 %; MCH 29.4 pg (25.0-35.0); MCHC 33.5 g/dL (31.0-37.0); MCV 87.9 fL (80.0-100.0); Mean Platelet Volume 6.5; Monocytes # (A) 0.5 k/uL (0-1.0); Monocytes % (A) 6 %; Neutrophils # (A) 6.3 k/uL (1.3-7.7); Neutrophils % (A) 71 %; Platelet Count 299 k/uL (150-450); RBC 5.59 m/uL (4.30-5.90)
[2021-01-25 14:53] LABS: ALT 45 U/L (4-49); AST 33 U/L (17-59); African American GFR (CKD) >90 (>60 ml/min/1.73 sqM); Albumin 4.8 g/dL (3.5-5.0); Alkaline Phosphatase 93 U/L (38-126); Amylase 73 U/L (30-110); Anion Gap 13 mmol/L; Blood Urea Nitrogen 13 mg/dL (9-20); Calcium 10.2 mg/dL (8.4-10.2); Carbon Dioxide 24 mmol/L (22-30); Chloride 104 mmol/L (98-107); Glucose 138 mg/dL (74-99); Lipase 189 U/L (23-300); Non-African American GFR(CKD) 87 (>60 ml/min/1.73 sqM); Potassium 3.9 mmol/L (3.5-5.1); Sodium 141 mmol/L (137-145); Total Bilirubin 0.5 mg/dL (0.2-1.3); Total Protein 7.7 g/dL (6.3-8.2)
== END 2021-01-25 15:35 | disposition left against medical advice (07) ==
LOC: EC 12:47
DX: R11.10 Vomiting, unspecified (principal); R10.9 Unspecified abdominal pain; Z53.29 Procedure and treatment not carried out because of patient's decision for other reasons; F31.9 Bipolar disorder, unspecified; Z79.890 Hormone replacement therapy; Z79.899 Other long term (current) drug therapy
CPT/HCPCS: 36415; 80053; 82150; 83690; 85025; 99284; 96374; 96375 ×2; 96361; J2060; J2765